=== PATIENT | female | born 1945 | race Caucasian/White ===

== ENCOUNTER 2018-03-13 15:28 | Outpatient (REF) | payer OTHER, SELFPAY ==
--- NOTE | 2018-03-13 15:09 | SKI_PTH ---
PATIENT: Jeannine Xiao LOC: [facility] U#:[id number] AGE/SX: 72/F ROOM: RE03/13/[address]: Tahir Joseph DO : 1945 BED: DIS: 03/13/2018 SPEC #: [id number] RECD: 03/13/18 18:08 STATUS: LESLIE REQ #: [id number] FRANDY: 03/13/18 15:[address]: Tahir Joseph DEPT: Surgical Specimen RECD BY: Alla Lynn ENTERED: 03/13/18 18:09 SP TYPE: DON STEWART DR: Hemanth John Tissues: 1 - SKIN BIOPSY(SHAVE/PUNCH) Procedures: SKIN LEVEL 4 Comments: [id number]
== END 2018-03-13 15:48 ==
LOC: LBN 15:28
PROVIDERS: PCP Family Medicine; Visit Provider Otolaryngology Otolaryngology/Facial Plastic Surgery
DX: L30.8 Other specified dermatitis (principal); L92.9 Granulomatous disorder of the skin and subcutaneous tissue, unspecified; Z85.828 Personal history of other malignant neoplasm of skin
CPT/HCPCS: 88305

== ENCOUNTER → 2018-08-10 12:43 | Outpatient (BNVA) | payer OTHER, SELFPAY | PROVIDERS: PCP Family Medicine; Referring Provider Specialist; Visit Provider Internal Medicine Cardiovascular Disease | DX: I49.5 Sick sinus syndrome (principal); I48.0 Paroxysmal atrial fibrillation; Z79.899 Other long term (current) drug therapy; Z79.01 Long term (current) use of anticoagulants; E78.2 Mixed hyperlipidemia; E11.9 Type 2 diabetes mellitus without complications; I10 Essential (primary) hypertension; Z45.010 Encounter for checking and testing of cardiac pacemaker pulse generator [battery] | CPT/HCPCS: 93280; 99204 ==

== ENCOUNTER → 2018-10-12 14:01 | Outpatient (BNVA) | payer OTHER, SELFPAY | PROVIDERS: PCP Family Medicine; Visit Provider Internal Medicine Cardiovascular Disease | DX: I48.0 Paroxysmal atrial fibrillation (principal); E78.2 Mixed hyperlipidemia; Z79.01 Long term (current) use of anticoagulants; I49.5 Sick sinus syndrome; E11.9 Type 2 diabetes mellitus without complications; K80.20 Calculus of gallbladder without cholecystitis without obstruction; I10 Essential (primary) hypertension; Z45.010 Encounter for checking and testing of cardiac pacemaker pulse generator [battery] | CPT/HCPCS: 93280; 99214 ==

== ENCOUNTER → 2019-02-20 13:02 | Outpatient (BNVA) | payer OTHER, SELFPAY | PROVIDERS: PCP Family Medicine; Visit Provider Nurse Practitioner Primary Care | DX: I49.5 Sick sinus syndrome (principal); Z45.018 Encounter for adjustment and management of other part of cardiac pacemaker; E78.2 Mixed hyperlipidemia; I10 Essential (primary) hypertension; I47.1 Supraventricular tachycardia; I48.0 Paroxysmal atrial fibrillation; Z79.01 Long term (current) use of anticoagulants; E11.9 Type 2 diabetes mellitus without complications | CPT/HCPCS: 93288; 99214 ==

== ENCOUNTER 2020-03-10 15:45 | Outpatient (REF) | payer OTHER, SELFPAY ==
--- NOTE | 2020-03-10 15:14 | SKI_PTH ---
PATIENT: Jeannine Xiao LOC: [facility] U#:[id number] AGE/SX: 74/F ROOM: RE03/10/[address]: Tahir Joseph DO : 1945 BED: DIS: 03/10/2020 SPEC #: [id number] RECD: 03/11/20 09:15 STATUS: LESLIE REQ #: [id number] FRANDY: 03/10/20 15:[address]: Tahir Joseph DEPT: Surgical Specimen RECD BY: Deanan Daniels ENTERED: 03/11/20 09:17 SP TYPE: SKI OTHR DR: Hemanth John Tissues: 1 - SKIN BIOPSY(SHAVE/PUNCH) Procedures: SKIN LEVEL 4 Comments: [id number]
== END 2020-03-10 16:05 ==
LOC: LBN 15:45
PROVIDERS: PCP Family Medicine; Visit Provider Otolaryngology Otolaryngology/Facial Plastic Surgery
DX: D49.2 Neoplasm of unspecified behavior of bone, soft tissue, and skin (principal); L98.8 Other specified disorders of the skin and subcutaneous tissue; Z85.828 Personal history of other malignant neoplasm of skin
CPT/HCPCS: 88305

== ENCOUNTER → 2020-03-26 11:27 | Outpatient (BNVA) | payer OTHER, SELFPAY | PROVIDERS: PCP Family Medicine; Referring Provider Family Medicine; Visit Provider Physician Assistant | DX: I49.5 Sick sinus syndrome (principal); Z45.018 Encounter for adjustment and management of other part of cardiac pacemaker; I10 Essential (primary) hypertension | CPT/HCPCS: 93280; 99212 ==

== ENCOUNTER → 2020-10-22 12:50 | Outpatient (BNVA) | payer OTHER, SELFPAY | PROVIDERS: PCP Family Medicine; Referring Provider Family Medicine; Visit Provider Physician Assistant | DX: I49.5 Sick sinus syndrome (principal); Z45.018 Encounter for adjustment and management of other part of cardiac pacemaker | CPT/HCPCS: 93280; 99212 ==

== ENCOUNTER → 2021-10-21 12:56 | Outpatient (BNVA) | payer MEDICARE, SELFPAY | PROVIDERS: PCP Nurse Anesthetist, Certified Registered; Referring Provider Nurse Anesthetist, Certified Registered; Visit Provider Physician Assistant | DX: I49.5 Sick sinus syndrome (principal); Z95.0 Presence of cardiac pacemaker; Z79.899 Other long term (current) drug therapy | CPT/HCPCS: 93005; 93280 ==

== ENCOUNTER 2021-10-21 13:14 | Outpatient (CLI) | payer MEDICARE, SELFPAY ==
--- NOTE | 2021-10-21 13:00 | RT.EKG_ITS ---
APPROVED REPORT Exam: Resting ECG Reason for Exam: [facility] Patient Location: O HR:67 bpm ECG Measurements Heart Rate 67 AXIS AR 177 P 32 QRSd 126 QRS -66 QT 460 T 0 QTc 486 Conclusion Sinus rhythm...normal P axis, V-rate 50- 99 Probable left atrial enlargement...P >50mS, <-0.10mV V1 RBBB and LAFB...QRSd >120mS, axis(-40,240) Baseline wander in lead(s) V4
== END 2021-10-21 13:15 | disposition home or self-care (01) ==
LOC: DI.CARD 13:14
PROVIDERS: PCP Nurse Anesthetist, Certified Registered; Visit Provider Physician Assistant
DX: I49.5 Sick sinus syndrome (principal); Z79.899 Other long term (current) drug therapy
CPT/HCPCS: 93010

== ENCOUNTER 2023-04-20 08:55 | Outpatient (CLI) | payer MEDICARE, SELFPAY ==
--- NOTE | 2023-04-20 08:45 | RT.EKG_ITS ---
APPROVED REPORT Exam: Resting ECG Reason for Exam: sotolol monitoring Patient Location: O HR:67 bpm ECG Measurements Heart Rate 67 AXIS OH 176 P 28 QRSd 124 QRS -69 QT 464 T -8 QTc 490 Conclusion Sinus rhythm...normal P axis, V-rate 50- 99 Probable left atrial enlargement...P >50mS, <-0.10mV V1 RBBB and LAFB...QRSd >120mS, axis(-40,240)
== END 2023-04-20 08:56 | disposition home or self-care (01) ==
LOC: DI.CARD 08:57
PROVIDERS: PCP Nurse Anesthetist, Certified Registered; Visit Provider Physician Assistant
DX: I47.10 Supraventricular tachycardia, unspecified (principal); I49.5 Sick sinus syndrome; Z51.81 Encounter for therapeutic drug level monitoring
CPT/HCPCS: 93010

== ENCOUNTER → 2023-04-20 14:55 | Outpatient (BNVA) | payer MEDICARE, SELFPAY | PROVIDERS: PCP Nurse Anesthetist, Certified Registered; Referring Provider Nurse Anesthetist, Certified Registered; Visit Provider Physician Assistant | DX: Z45.018 Encounter for adjustment and management of other part of cardiac pacemaker (principal); I49.5 Sick sinus syndrome; Z51.81 Encounter for therapeutic drug level monitoring | CPT/HCPCS: 93005; 93280 ==

== ENCOUNTER 2024-03-21 08:56 | Outpatient (CLI) | payer MEDICARE, SELFPAY ==
--- NOTE | 2024-03-21 08:45 | RT.EKG_ITS ---
APPROVED REPORT Exam: Resting ECG Reason for Exam: monitoring sotolol Patient Location: O HR:61 bpm ECG Measurements Heart Rate 61 AXIS IN 181 P 31 QRSd 108 QRS -49 QT 465 T 27 QTc 469 Conclusion Atrial-paced complexes...other complexes also detected LAD, consider left anterior fascicular block...axis(240,-40), S>R II III aVF
== END 2024-03-21 08:57 | disposition home or self-care (01) ==
LOC: DI.CARD 08:56
PROVIDERS: PCP Nurse Anesthetist, Certified Registered; Visit Provider Student in an Organized Health Care Education/Training Program
DX: Z79.899 Other long term (current) drug therapy (principal)
CPT/HCPCS: 93010

== ENCOUNTER → 2024-03-21 12:50 | Outpatient (BNVA) | payer MEDICARE, SELFPAY | PROVIDERS: PCP Nurse Anesthetist, Certified Registered; Visit Provider Student in an Organized Health Care Education/Training Program | DX: I49.5 Sick sinus syndrome (principal); Z45.018 Encounter for adjustment and management of other part of cardiac pacemaker | CPT/HCPCS: 93280 ==